=== PATIENT | male | born 1955 | race Caucasian/White ===

== ENCOUNTER → 2019-01-14 13:28 | Day surgery (SDC) | payer OTHER ==
[~2019-01-14 13:28] MED LIST: Bupivacaine 0.25% SDV PF* 10 ML VIAL INJ ONE; Lidocaine 1% w EPI 1:100,000* 30 ML VIAL ONE; Sodium Bicarbonate 8.4%* 50 ML SYRINGE ONE
[2019-01-14 13:57] VITALS: BP 142/83
--- NOTE | 2019-01-14 20:13 | OP ---
DATE OF OPERATION: 01/14/19 - [facility] DATE OF : 55 SURGEON: Ruddy Alejandra MD GUTTER MOUTH CUTTER: None. ANESTHESIOLOGIST: None. ANESTHESIA: Local only with 1% buffered lidocaine with epinephrine. PRE-OP DIAGNOSIS: Severe left trigger finger, unable to make a full fist. POST-OP DIAGNOSIS: Severe left trigger finger, unable to make a full fist. OPERATIVE PROCEDURE: 1. Left index trigger finger release of A1 chun. 2. Left FDS ulnar tendon slip excision. 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 He is unable to fully make a fist. Again with trigger finger injection, he got better for just a few days and then it started to immediately come back. We talked about his treatment options. I thought he might be triggering up a Camper's chiasm. He wants to proceed with surgery. ESTIMATED BLOOD LOSS: 5 mL. COMPLICATIONS: None. FINDINGS: See above and below. DESCRIPTION OF PROCEDURE: Pepito was seen in the preoperative holding area. The correct site, side, and procedure were identified. We came back to the operating room where the arm was prepped and draped in the usual fashion and a time-out was performed. I had injected the index finger with 1% buffered lidocaine with epinephrine out in the preoperative area. I went ahead and made a 1 cm longitudinal incision over the A1 chun of the index finger. Dissection was carried down. Full-thickness flaps were bluntly raised off of the tendon sheath. I used a tenotomy scissors to release the A1 chun and delivered the fascia overlying the tendon proximal to that. Once that was fully released, I had him make the fist several times. There was not any obvious erica triggering, but he cannot quite get the finger down to full flexion and a couple times, I thought this all looked like some triggering at Camper's chiasm. I therefore made a little ulnarly based V-shaped incision and raised an ulnarly based flap off the A3 chun. The A3 chun was released along the ulnar margin over about a centimeter. The ulnar slip of the FDS tendon was released. Camper 's chiasm was split. The free edge of the tendon was pulled proximally up into the palm wound where the tendon split was taken proximally and then beveled off with a [place] blade. After this, I had to make a full fist. He was able to get down more fully into a full fist. The finger was just moving much nicer. Overall, at this point, I was very pleased. We irrigated out the wound. The A3 chun was put back into place. The skin was closed with 4-0 nylon suture. A couple of milliliters of 0.25% plain Marcaine was infiltrated around the operative area. A dressing was applied and he was taken to the recovery room in stable condition. [id number]/[facility] #: [id number] SETH
== END | disposition home or self-care (01) ==
LOC: OR 13:28
PROVIDERS: ATTEND Orthopaedic Surgery Hand Surgery
DX: M65.322 Trigger finger, left index finger (principal); N40.1 Benign prostatic hyperplasia with lower urinary tract symptoms; R33.8 Other retention of urine
CPT/HCPCS: J3490